=== PATIENT | female | born 1975 | race Caucasian/White ===

== ENCOUNTER 2016-11-12 18:18 | Emergency (ER) | payer BC ==
[2016-11-12 18:39] VITALS: BP 116/75
--- NOTE | 2016-11-12 19:11 | UC ---
Complaint Female HPI - History Of Current Complaint Chief Complaint: [facility] Stated Complaint: URINARY Time Seen by Provider: 11/12/16 19:01 Hx Obtained From: Patient Hx Last Menstrual Period: 11/05/16 ?: No Onset/Duration: Sudden Onset - today, Worse Since - onset Timing: Constant Severity Initially: Mild Severity Currently: Moderate Character: Burning, Cramping Aggravating Factor(s): Urination Alleviating Factor(s): Nothing Associated Signs And Symptoms: Positive: Negative - Risk Factors Ectopic Risk Factor: Maternal Age ^ 30 - Allergies/Home Medications Allergies/Adverse Reactions: Allergies Allergy/AdvReac Type Severity Reaction Status Date / Time No Known Allergies Allergy Verified 11/12/16 18:39 Home Medications: Home Medications Bupropion XL (NF) [Wellbutrin XL (NF)] 300 mg PO BEDTIME 11/12/16 [History Confirmed 11/12/16] metFORMIN* [Glucophage*] 500 mg PO BEDTIME 11/12/16 [History Confirmed 11/12/16] PMH/Surg Hx/FS Hx/Imm Hx Endocrine History Of: Denies: Thyroid Disease Cardiovascular History Of: Denies: Hypertension Respiratory History Of: Denies: Asthma - Surgical History Surgical History: Yes Surgery Procedure, Year, and Place: gallbladder. 2 c-sections. 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 Lives: With Family Alcohol Use: None Substance Use Type: None Smoking Status (MU): Never Smoked Tobacco - Immunization History Most Recent Influenza Vaccination: [id number] Review of Systems Genitourinary: Dysuria, Frequency, Urgency All Other Systems Reviewed And Are Negative: Yes Physical Exam Triage Information Reviewed: Yes Appearance: Well-Appearing, No Pain Distress, Well-Nourished Vital Signs: Initial Vital Signs Temp 97.8 F 11/12/16 18:34 Pulse 80 11/12/16 18:34 Resp 16 11/12/16 18:34 BP 116/75 11/12/16 18:34 Pulse Ox 100 11/12/16 18:34 Vital Signs Reviewed: Yes Eyes: Positive: Conjunctiva Clear Neck exam: Normal Respiratory Exam: Normal Cardiovascular Exam: Normal Abdomen Description: Positive: Nontender, No Organomegaly, Soft Musculoskeletal Exam: Normal Neurological Exam: Normal Psychological Exam: Normal Skin Exam: Normal Complaint Female Dx - Differential Dx/Diagnosis Differential Diagnosis/HQI/PQRI: Appendicitis, Ovarian Torsion, Urinary Tract Infection Provider Diagnoses: Acute cystitis Discharge - Discharge Plan Condition: Stable Disposition: HOME Prescriptions: Phenazopyridine HCl [Pyridium] 200 mg PO TID PRN #6 tab PRN Reason: painful urination Sulfamethox/Trimethoprim DS* [Bactrim DS 800/160 TAB*] 1 tab PO BID #10 tab
[2016-11-12] MEDS ORDERED: Sulfamethox/Trimethoprim DS 800/160* TAB PO ONE (19:13)
[2016-11-12] MEDS ORDERED: Phenazopyridine TAB* 100 MG PO ONE (19:13)
== END 2016-11-12 19:25 | disposition home or self-care (01) ==
LOC: UCCORT 18:18
DX: N30.00 Acute cystitis without hematuria (principal)
CPT/HCPCS: 87086; 99202; A9270-GY; G0463